=== PATIENT | male | born 1995 | race Caucasian/White ===

== ENCOUNTER 2017-03-30 01:28 | Observation (INO) | payer BC ==
[2017-03-30] VITALS (11 sets, daily range): BP systolic 98–144; BP diastolic 41–81; PULSE 79–131; TEMP 98.2–98.9
[~2017-03-30] VITALS: Ht 167.6 cm; Wt 59.0 kg
[2017-03-30] MEDS ORDERED: XYZAL5 MG PO (01:35)
[2017-03-30 02:29] LABS: BASO # 0.1 (0.0-0.2); BASO % 0.4 % (0.0-2.0); EOS # 0.5 (0.0-0.7); EOS % 2.9 % (0-4.0); GRAN # 14.6 (1.4-6.5); GRAN % 81.4 % (42.2-75.2); HEMATOCRIT 42.2 % (42.0-52.0); HEMOGLOBIN 15.4 g/dl (13.5-18.0); LYMPH # 1.4 (1.2-3.4); LYMPH % 7.7 % (20.0-51.0); MEAN CELL VOLUME 88 fl (80.0-100.0); MEAN CORPUSCULAR HEMOGLOBIN 32 pg (27.0-31.0); MEAN CORPUSCULAR HGB CONC 37 g/dl (33.0-37.0); MEAN PLATELET VOLUME 9.9 fl (7.4-10.4); MONO # 1.3 (0.1-0.6); MONO % 7.3 % (1.7-9.3); PLATELET COUNT 227 K/mm3 (130-400); RED BLOOD COUNT 4.82 M/mm3 (4.20-5.60); WHITE BLOOD COUNT 17.9 K/mm3 (4.8-10.8)
[2017-03-30 02:41] LABS: ADJUSTED CALCIUM 9.9 mg/dL (8.4-10.2); ALBUMIN 4.6 gm/dL (3.5-5.0); BILIRUBIN,TOTAL 1.2 mg/dL (0.0-1.0); C-REACTIVE PROTEIN 0.6 mg/dL (0.0-0.9); CALCIUM 10.4 mg/dL (8.4-10.2); CREATININE, serum 0.84 mg/dL (0.66-1.25); POTASSIUM 3.8 mmol/L (3.4-5.0); TOTAL PROTEIN 7.3 gm/dL (6.4-8.2)
[2017-03-30 02:42] LABS: PH 6 (5-8); SQUAMOUS EPITHELIAL None Seen /hpf; URINE APPEARANCE Clear; URINE BACTERIA None Seen /hpf; URINE BILIRUBIN Negative (NEGATIVE); URINE BLOOD Negative (NEGATIVE); URINE COLOR Straw; URINE GLUCOSE Negative (NEGATIVE); URINE KETONE Negative (NEGATIVE); URINE RBC 0-2 /hpf; URINE UROBILINOGEN Negative (NEGATIVE); URINE WBC 0-2 /hpf
[2017-03-30 14:22] LABS: HEMATOCRIT 41.2 % (42.0-52.0); HEMOGLOBIN 15.3 g/dl (13.5-18.0)
[2017-03-30] MEDS ORDERED: ROXICODONE 55 MG/TAB PO (14:38)
[2017-03-30] MEDS ORDERED: TYLENOL 500MG500 MG PO (14:38)
== END 2017-03-30 15:16 | disposition home or self-care (01) ==
LOC: COL.ER 01:28 → SURG 03:39
PROVIDERS: Emergency Medicine; Surgery
DX: K35.80 Unspecified acute appendicitis (principal)
CPT/HCPCS: G0378; J1100; J1170; J1885; J2405; J2543; J2704; J2710; J2765; J3010; J7030; J7050; J7120; Q9967